=== PATIENT | female | born 1970 | race Caucasian/White ===

== ENCOUNTER 2019-12-16 17:06 | Emergency (ER) | payer OTHER, SELFPAY ==
[2019-12-16 17:12] VITALS: BP 181/93; PULSE 105; RESP 32; TEMP 37.1; O2SAT 99; BMI 36.6
[2019-12-16 17:17] VITALS: BP 181/93; PULSE 101; O2SAT 99
--- NOTE | 2019-12-16 17:17 | DI.RAD.S_ITS ---
PROCEDURE: XR ANKLE RT MIN 3V INDICATIONS: Ankle pain TECHNIQUE: 3 views of the ankle were acquired. COMPARISON: None. FINDINGS: There are displaced and distracted fractures of the medial and lateral malleolus. The lateral malleolus fracture extends into the ankle mortise and also into the tibial fibular syndesmosis. There is wide disruption of the ankle mortise. Large ankle joint effusion is present. IMPRESSION: Medial and lateral malleolus fractures, widely displaced and with significant disruption of the ankle mortise. Suspected disruption of the tibiofibular syndesmosis as well. Orthopedic consultation recommended. Dictated by: Hernan Bourne M.D. on 12/16/2019 at 17:50 Approved by: Hernan Bourne M.D. on 12/16/2019 at 17:51
[2019-12-16 17:38] VITALS: PULSE 98; O2SAT 92
[2019-12-16 18:00] VITALS: PULSE 97; O2SAT 100
[2019-12-16] MEDS: KETOROLAC 60 MG/2 ML VIAL 30 MG IM (18:04)
--- NOTE | 2019-12-16 18:44 | ED_ITS ---
HPI - Extremity Injury (Lower) <KARINA Bright - Last Filed: 12/16/19 21:06> General Chief Complaint: Extremity Injury, Lower Stated Complaint: RIGHT ANKLE INJURY Time Seen by Provider: 12/16/19 17:11 Source: patient Mode of arrival: Wheelchair Limitations: no limitations History of Present Illness HPI Narrative: 49yo female presents to for right ankle pain and swelling. She states she was stepping down from the boat when she rolled her right ankle in heard a pop. Patient states she has been unable to bear weight on her ankle. She states she has had previous foot surgery a few years ago. Patient denies any other injuries such as head injury, knee pain, hip pain, fevers, chills, nausea, vomiting, diarrhea. Related Data Previous Rx's Medication Instructions Recorded hydrocodone-acetaminophen [[place]] 1 tab PO Q4-6H PRN #20 tab 12/16/19 Allergies Allergy/AdvReac Type Severity Reaction Status Date / Time No Known Drug Allergies Allergy Verified 12/16/19 17:20 Review of Systems <KARINA Bright - Last Filed: 12/16/19 21:06> Review of Systems Narrative: REVIEW OF SYSTEMS: GENERAL: Denies fever or chills. HENT: No head trauma. EYES: No vision changes. CARDIOVASCULAR: No chest pain or syncope. RESPIRATORY: No shortness of breath. GASTROINTESTINAL: No nausea, vomiting, diarrhea, or constipation. GENITOURINARY: No flank pain or dysuria. MUSCULOSKELETAL: Complains of right ankle pain, see HPI. INTEGUMENTARY: No rash. NEURO: No numbness, tingling. PSYCH: No behavior or mood changes. Patient History <KARINA Bright - Last Filed: 12/16/19 21:06> Medical History No significant medical problems (Acute) Social History Smoking Status: Unknown if ever smoked Smoking Status: Unknown if ever smoked alcohol intake frequency: holidays/special occasions only Substance Use Type: does not use Exam <KARINA Bright - Last Filed: 12/16/19 21:06> Initial Vital Signs Initial Vital Signs: Vital Signs Temperature 98.7 F 12/16/19 17:12 Pulse Rate 105 H 12/16/19 17:12 Respiratory Rate 32 H 12/16/19 17:12 Blood Pressure 181/93 H 12/16/19 17:12 Pulse Oximetry 99 12/16/19 17:12 PHYSICAL EXAMINATION: GENERAL: Well groomed, alert, and cooperative. Answers questions promptly and appropriately. Vital signs noted. HENT: Normocephalic, atraumatic. EYES: Symmetrical, sclera white, no periorbital swelling. CARDIOVASCULAR: S1 and S2 sounds normal. Regular rate and rhythm, no murmurs, clicks, or bruits. No pedal edema. RESPIRATORY: Normal respiratory rate, trachea midline, airway patent. No stridor, nasal flaring or accessory muscle use. Lungs are clear in all ding. MUSCULOSKELETAL: Swelling, ecchymosis, and tenderness to right lateral and medial aspect of ankle. Decreased range of motion due to pain. Pedal pulses 2+ and intact bilaterally. Patient able to move her toes and part of her foot. Normal gait and coordination. Equal tone and mass bilaterally. EXTREMITIES: CMS intact. SKIN: Warm, dry, soft, appropriate color for ethnicity. No lesions, rashes, or wounds. NEURO: Alert and Oriented X 3. No sensory deficits. Light touch sensation intact proximal and distal to injury. PSYCH: Appropriate affect and mood. <Rod Morales DO - Last Filed: 12/17/19 01:34> Initial Vital Signs Initial Vital Signs: Vital Signs Temperature 98.7 F 12/16/19 17:12 Pulse Rate 105 H 12/16/19 17:12 Respiratory Rate 32 H 12/16/19 17:12 Blood Pressure 181/93 H 12/16/19 17:12 Pulse Oximetry 99 12/16/19 17:12 Course <KARINA Bright - Last Filed: 12/16/19 21:06> Course Course Narrative: 1833: I spoke with Dr. Brooke from Orthopedics, recommend splinting, crutches, and follow-up as soon as possible. Orders Ordered: ED Orders 12/16/19 17:17 XR ankle RT min 3V Stat Discontinued Medications Ketorolac Tromethamine (Toradol) 30 mg IM NOW ONE Stop: 12/16/19 18:00 Last Admin: 12/16/19 18:04 Dose: 30 mg Documented by: STEFANIE Vital Signs Vital signs: Vital Signs - 8 hr 12/16/19 17:38 12/16/19 18:00 12/16/19 19:35 Pulse Rate 98 H 97 H 95 H Respiratory Rate 12 Blood Pressure 160/70 H Pulse Oximetry 92 100 98 <Rod Morales DO - Last Filed: 12/17/19 01:34> Orders Ordered: ED Orders 12/16/19 17:17 XR ankle RT min 3V Stat Discontinued Medications Ketorolac Tromethamine (Toradol) 30 mg IM NOW ONE Stop: 12/16/19 18:00 Last Admin: 12/16/19 18:04 Dose: 30 mg Documented by: STEFANIE Vital Signs Vital signs: Vital Signs - 8 hr 12/16/19 17:38 12/16/19 18:00 12/16/19 19:35 Pulse Rate 98 H 97 H 95 H Respiratory Rate 12 Blood Pressure 160/70 H Pulse Oximetry 92 100 98 MDM - Extremity Injury (Lower) <KARINA Bright - Last Filed: 12/16/19 21:06> Medical Records Attestation: I reviewed the patient's medical records. Lab Data Attestation: I reviewed the patient's lab results. Imaging Data Extremity x-ray #1: Radiologist's Impression: [place] [address] XRay Report Signed Patient: Verónica Goetz RMR#: [id number] : 1970Acct:[id number] Age/Sex: 49 / FDate of Service: 12/16/19 Loc: ED Accession Number: [id number] Procedure: XR ankle RT min 3V Ordering Provider: Millicent Small PROCEDURE: XR ANKLE RT MIN 3V INDICATIONS: Ankle pain TECHNIQUE: 3 views of the ankle were acquired. COMPARISON: None. FINDINGS: There are displaced and distracted fractures of the medial and lateral malleolus. The lateral malleolus fracture extends into the ankle mortise and also into the ti bial fibular syndesmosis. There is wide disruption of the ankle mortise. Large ankle joint effusion is present. IMPRESSION: Medial and lateral malleolus fractures, widely displaced and with significant disruption of the ankle mortise. Suspected disruption of the tibiofibular syndesmosis as well. Orthopedic consultation recommended. Dictated by: Hernan Bourne M.D. on 12/16/2019 at 17:50 Approved by: Hernan Bourne M.D. on 12/16/2019 at 17:51 [facility] Narrative Medical decision making narrative: 49-year-old female presents emergency department for right ankle pain and swelling. Bi malleolar fractures seen on x-ray with fibula fracture. Orthopedic was contacted, recommended splinting, and close follow-up. Patient was instructed to not bear any weight on ankle. CMS intact, no lesions to the area, closed fracture. Return precautions given for new or worsening symptoms. Follow-up instructions discussed. Patient agreed but care verbalized understanding Discharge Plan Departure Patient Disposition: Home Clinical Impression: Bimalleolar ankle fracture Qualifiers: Encounter type: initial encounter Fracture type: closed Laterality: right Qualified Code(s): S82.841A - Displaced bimalleolar fracture of right lower leg, initial encounter for closed fracture Discharge Date/Time: 12/16/19 19:37 Instructions: DI for Ankle Fracture Activity Restrictions/Additional Instructions: Thank you for entrusting me with your care today. As discussed, your ankle is fractured in 3 places. We have placed a splint on her ankle, do not put any weight on your ankle at any point. Please use the crutches. Please call the office listed below tomorrow or Thursday to schedule a follow-up appointment. You have been prescribed a narcotic medication, this medication can make you drowsy. Do not drive while using this medication or perform activities that require mental alertness. These medications can also make you constipated, please use [id number] docusate sodium as needed for constipation. Return emergency department for any new or worsening symptoms such as severe pain, uncontrollable vomiting, high fevers, or any other concerns. Prescriptions: New hydrocodone-acetaminophen [[place]] 5-325 mg tablet 1 tab PO Q4-6H PRN (Reason: pain) Qty: 20 RF: 0 Referrals: Sarthak Brooke MD [Physician] - (Bimalleolar ankle fracture) <Rod Morales DO - Last Filed: 12/17/19 01:34> [facility] I was immediately available in the department for consultation. This documentation has been reviewed and I agree with assessment and plan. Supervised by Rod Morales, DO
--- NOTE | 2019-12-16 18:58 | PC.NURSE ---
posterior and stirrup splint
[2019-12-16 19:35] VITALS: BP 160/70; PULSE 95; RESP 12; O2SAT 98
== END 2019-12-16 19:37 | disposition home or self-care (01) ==
PROVIDERS: Emergency Provider Nurse Practitioner
DX: S82.841A Displaced bimalleolar fracture of right lower leg, initial encounter for closed fracture (principal); X58.XXXA Exposure to other specified factors, initial encounter
CPT/HCPCS: 29515; 73610; 96372; 99283; 99284; J1885

== ENCOUNTER → 2019-12-20 16:51 | Outpatient (ROUT) | payer OTHER, SELFPAY ==
[2019-12-21 09:09] LABS: COVID19 Sendout Not Detected (Not Detect)
== END ==
PROVIDERS: Visit Provider Physician Assistant
DX: Z11.59 Encounter for screening for other viral diseases (principal)
CPT/HCPCS: 87635

== ENCOUNTER 2019-12-23 08:05 | Day surgery (SDC) | payer OTHER, SELFPAY ==
[2019-12-23] VITALS (8 sets, daily range): BP systolic 122–145; BP diastolic 58–87; PULSE 82–102; RESP 11–84; TEMP 36.2–36.3; O2SAT 96–100; BMI 36.6
--- NOTE | 2019-12-23 | DI.RAD.S_ITS ---
PROCEDURE: XR ANKLE RT MIN 3V INDICATIONS: ORIF RIGHT ANKLE TECHNIQUE: 6 views of the ankle were acquired. COMPARISON: [facility], CR, XR ANKLE RT MIN 3V, 12/16/2019, 17:26. FINDINGS: Spot fluoroscopic image operative images demonstrating lateral sideplate and screw fixation of the lateral malleolus. There is also screw fixation of the medial malleolus and sequela of tight rope procedure. Expected intraoperative alignment. Dictated by: Kameron Magallanes M.D. on 12/23/2019 at 13:43 Approved by: Kameron Magallanes M.D. on 12/23/2019 at 13:44
[2019-12-23] MEDS: LACTATED RINGERS 1,000 ML 42 ML IV (08:41)
[2019-12-23] MEDS: fentaNYL 100 MCG/2 ML INJ 50 MCG IV (10:01)
[2019-12-23] MEDS: MIDAZOLAM 2 MG/2 ML VIAL IV (10:02)
--- NOTE | 2019-12-23 10:09 | PM.PREOP ---
Pre-operative Note COVID-19 COVID-19 status: Negative Interval Note History & Physical reviewed/Exam performed by Physician: Yes Changes to H&P: No
[2019-12-23] MEDS: CEFAZOLIN 2 GM/100 ML FROZ.PIGGY IV (10:15)
--- NOTE | 2019-12-23 10:18 | SUR.PREOP ---
Block start time [1003] . Monitoring initiated and maintained throughout procedure. Oxygen and medications given per anesthesiologist instructions. Patient remained stable throughout procedure, no adverse reactions noted. Block end time [1011].
[2019-12-23] MEDS: BUPIVACAINE 0.25% W/ EPI 30 ML VIAL INJ (10:59)
[2019-12-23] MEDS: ONDANSETRON 4 MG/2 ML INJ IV (13:07)
[2019-12-23] MEDS: OXYCODONE IR 5 MG TABLET PO (13:07)
--- NOTE | 2019-12-23 13:25 | P.OP_ITS ---
Operative Date/Time/Diagnoses Date of procedure: 12/23/19 Time of procedure: 10:15 Pre-op diagnosis: Right trimalleolar ankle fracture Right syndesmotic disruption ankle Post-op diagnosis: same Procedure & Clinicians Procedure: 1. Open reduction internal fixation trimalleolar ankle fracture without posterior lip. CPT code 77748 2. ORIF syndesmosis CPT code 80595 3. Closed treatment posterior malleolus fracture CPT code 51231 Same procedure as scheduled: Yes Indications: Patient is a 49-year-old female that fell on her boat last week she had immediate deformity and pain. She was brought to the hospital and found have an unstable trimalleolar ankle fracture. She was indicated for operative reduction and fixation. The risks and benefits of the procedure have been discussed with the patient even opportunity to ask questions. The risks of surgery include but are not limited to infection, malunion, nonunion, persistence of pain, damage to nerves and blood vessels, posttraumatic arthritis, DVT, PE, cardiopulmonary complications and . The patient expressed a thorough understanding of the risks and benefits of surgery and has elected to proceed. Consent was signed in the office. Surgeon: Janey Kline Click Yes if Unassisted: Yes Anesthesia Type: General, Peripheral nerve block and Local Operative Notes Findings: Unstable right trimalleolar ankle fracture was encountered. The oblique lateral malleolus fracture was stabilized with a 3 5 lag screw followed by a lateral neutralization plate which was a 7 hole 1/3 tubular plate. The medial malleolus was displaced and was reduced and fixed with 2x 40 mm cannulated screws. The syndesmosis was evaluated open and was grossly unstable. This was reduced and stabilized with a Arthrex tight rope device. At this point the posterior malleolus was evaluated and was in appropriate alignment for continued closed treatment Closure Type: primary Specimen(s): none sent Prosthetic devices, grafts, tissues, transplants, or devices: Arthrex 7 hole 1/3 tubular locking plate. 3 x 3.5 nonlocking cortical screws proximally, 2 x locking 3.5 screws distally. One stainless steel tightrope-Arthrex. Medial malleolus was fixed with 2 x 40mm 4.0cannulated screws Estimated Blood Loss (mL): 20 Blood products transfused: none Tourniquet time (min): 69 Procedure in detail: In the preoperative holding area, the appropriate limb and sites were marked, consent was again reviewed with the patient and all questions answered. The patient was brought to the operating room, placed on the operating table and given anesthetic. Following successful levels of anesthesia, the patient was appropriately padded, position secured to the table. An SCD was placed on the contralateral leg. All bony prominences were well padded. A well-padded thigh tourniquet was placed. The surgical leg was then prepped and draped in the usual sterile fashion. A formal time-out procedure was completed confirming the patient, site and side of surgery and administration of appropriate preoperative antibiotics. All were in agreement. An Esmarch bandage was utilized to exsanguinate the limb and the tourniquet was raised on the thigh to 300 mmHg. Lateral incision was made over the fibula. Dissection was carried through the skin and subcutaneous tissue to the level of the fibula. The fracture was exposed and cleaned of debris. Fracture was reduced, restoring length rotation and anatomic alignment. This was stabilized with a 3 5 cortical lag screw. Next a 7 hole 1/3 tubular locking neutralization plate was placed and secured in standard fashion. This was from the Arthrex set. Appropriate implant positioning was confirmed on intraoperative fluoro. Medial malleolus fixation: Attention was then turned to the medial side of the joint. A standard medial approach to the medial malleolus was performed. The periosteum was reflected at the fracture site and this was cleaned and reduced with a pointed reduction clamp. Two parallel K-wires were then placed and alignment checked on x-ray to confirm adequate position. The wires were then sequentially overdrilled and 2 40mm 4.0mm cannulated screws were placed. The red uction was stable. Of note through the fracture sites the joint was visualized and irrigated. No obvious articular involvement of the talar dome was noted. Syndesmosis stabilization: Attention was then turned to the syndesmosis. The syndesmosis was stressed under fluoroscopy with external rotation. It was felt the syndesmosis opened-this was also directly visualized through the lateral wound and dissection was carried distally to reduce and directly visualize the Rosamaria sign on reduction. Therefore the syndesmosis was formally opened and reduced and then stabilized with a stainless steel tightrope from the Arthrex set.-technique of reduction was a thumb pressure and K-wire followed by syndesmotic tight rope placement. Stability was confirmed under fluoro. With an external rotation stress test. Tourniquet was released. The wounds were irrigated. We were quite satisfied with result clinically and radiographically. The tourniquet was released, and hemostasis achieved. The deep tissue was closed with 2 O Vicryl. Subcutaneous tissue was closed with 4 0 Monocryl in the skin with 3 O and 2 0 nylon. A sterile bulky dressing and knee splint were applied. All counts were correct. The patient was then awoken and transported to recovery room in good condition. There no known immediate complications from this procedure. Complications: none Post-operative Condition: stable Disposition: PACU Plan for aftercare: Patient will be nonweightbearing. She will start aspirin postop day 1 for DVT prophylaxis. Sutures will remain in place 2-3 weeks. When she comes back x-rays will be taken. And placed will be placed into a removable boot. Will start early range of motion but maintain nonweightbearing for 6 weeks.
--- NOTE | 2019-12-23 13:38 | SUR.PHASEII ---
1332 c/o being light-headed after transfer to [facility]. VS repeated. Light-headedness improved after HOB lowered. Pt desires to rest 15-20 minutes and then reevaluate for discharge. 1339 [employer] [employer] FEEDBACK reports that patient is feeling much better, less sedated and wants to go home. Sat 99%
== END 2019-12-23 13:49 | disposition home or self-care (01) ==
PROVIDERS: Referring Provider Orthopaedic Surgery Foot and Ankle Surgery; Visit Provider Orthopaedic Surgery Foot and Ankle Surgery
PROC: 0SSF04Z Reposition Right Ankle Joint with Internal Fixation Device, Open Approach (ICD-10-PCS; CPT 27822; principal; 2019-12-23 09:45)
DX: S82.851A Displaced trimalleolar fracture of right lower leg, initial encounter for closed fracture (principal); W18.30XA Fall on same level, unspecified, initial encounter; E66.9 Obesity, unspecified; E06.3 Autoimmune thyroiditis; Z68.36 Body mass index [BMI] 36.0-36.9, adult
CPT/HCPCS: 27822; 27829; 64450; 73610; 76000; J0690; J2250; J2405; J3010

== ENCOUNTER → 2020-04-04 11:01 | Outpatient (CLI) | payer OTHER, SELFPAY ==
[2020-04-04 12:42] LABS: Add Manual Diff / Slide Review NO; Basophils Absolute Auto 0 /uL (0-100); Basophils Percent Auto 0.8 % (0-2); Eosinophils Absolute Auto 200 /uL (0-450); Eosinophils Percent Auto 3.9 % (2-4); Hematocrit 39.1 % (36-46); Hemoglobin 13.3 g/dL (12.0-16.0); Lymphocytes Absolute Auto 2100 /uL (1100-4500); Mean Corpuscular HGB Conc 34.1 % (30-36); Mean Corpuscular Hemoglobin 32.5 PG (26-34); Mean Corpuscular Volume 95.2 fL (80-100); Monocytes Absolute Auto 600 /uL (0-900); Monocytes Percent Auto 10.4 % (3-14); Neutrophils Absolute Auto 2400 /uL (1500-7000); Neutrophils Percent Auto 45.9 % (50-75); Platelet Count 264 X10^3/uL (150-400); Red Blood Cell Count 4.11 X10^6/uL (4.0-5.2); Red Cell Distribution Width 12.6 % (11.6-14.8); White Blood Cell Count 5.3 X10^3/uL (4.5-11.0)
[2020-04-04 13:02] LABS: Alanine Aminotransferase 28 IU/L (<35); Albumin 4.1 g/dL (3.5-5.0); Albumin Globulin Ratio 1.3 (1.0-2.8); Alkaline Phosphatase 92 U/L (38-126); Aspartate Aminotransferase 29 IU/L (14-36); BUN Creatinine Ratio 20.6 (6-22); Bilirubin Total 0.3 mg/dL (0.2-1.3); Bilirubin Unconjugated 0.3 mg/dL (0.0-1.1); Blood Urea Nitrogen 14 mg/dL (7-17); Carbon Dioxide 32 mmol/L (22-32); Chloride 101 mmol/L (98-107); Cholesterol 227 mg/dL (140-199); Estimated Glomerular Filt Rate > 60.0 mL/min (>60); Globulin 3.1 g/dL (1.7-4.1); Glucose 104 mg/dL (70-100); HDL Cholesterol 75 mg/dL (40-60); HEMOLYSIS < 15 (0-50); LDL Cholesterol Calculated 114 mg/dL (<100); Potassium 4.1 mmol/L (3.4-5.1); Sodium 136 mmol/L (137-145); Total Protein 7.2 g/dL (6.3-8.2); Triglycerides 191 mg/dL (35-150)
[2020-04-05 05:50] LABS: Hepatitis B Surf AB Quant <3.1 mIU/mL (Immunity>9.9)
[2020-04-05 06:46] LABS: Hepatitis B Core AB w/Reflex Negative (Negative)
[2020-04-09 16:09] LABS: Hepatitis B Surface Antigen NEGATIVE s/c (NEGATIVE)
[2020-04-09 16:22] LABS: HIV 1 & 2 Ab/Ag 4th Gen Combo NEGATIVE (NEGATIVE); Hep C Virus Ab w/Reflex Quant NEGATIVE s/c (NEGATIVE)
[2020-04-11 01:54] LABS: QuantiFERON Mitogen Value 6.89 IU/mL (.); QuantiFERON Nil Value 0.23 IU/mL (.); QuantiFERON TB Gold Plus Negative (Negative); QuantiFERON TB1 Ag Value 0.24 IU/mL (.); QuantiFERON TB2 Ag Value 0.24 IU/mL (.)
== END ==
PROVIDERS: PCP Nurse Practitioner Family; Referring Provider Dermatology; Visit Provider Dermatology
DX: Z79.899 Other long term (current) drug therapy (principal); L40.8 Other psoriasis; L40.0 Psoriasis vulgaris
CPT/HCPCS: 36415; 80048; 80061; 80076; 85025; 86480; 86704; 86706; 86803; 87340; 87389